=== PATIENT | female | born 1965 | race Caucasian/White ===

== ENCOUNTER 2017-05-06 16:02 | Emergency (ER) | payer OTHER, BC ==
[~2017-05-06] VITALS: Ht 162.6 cm; Wt 58.1 kg
[2017-05-06] MEDS ORDERED: GABAPENTIN100 MG PO (16:24)
[2017-05-06] MEDS ORDERED: HYDROCODON-ACE1 EA10 PO (16:24)
[2017-05-06] MEDS ORDERED: LISINOPRIL10 MG PO (16:26)
[2017-05-06] MEDS ORDERED: DIAZEPAM2 MG PO (16:26)
[2017-05-06] MEDS ORDERED: ROBAXIN500 MG PO (16:27)
[2017-05-06] MEDS ORDERED: CYCLOBENZAPRINE5 MG PO (16:27)
== END 2017-05-06 18:34 | disposition home or self-care (01) ==
LOC: ED 16:02
DX: M54.5 Low back pain (principal); I10 Essential (primary) hypertension; F17.200 Nicotine dependence, unspecified, uncomplicated; Z79.899 Other long term (current) drug therapy
CPT/HCPCS: 72100; 96372; 99283; J1885

== ENCOUNTER 2021-01-09 11:29 | Emergency (ER) | payer OTHER ==
[~2021-01-09] VITALS: Ht 162.6 cm; Wt 68.0 kg
[~2021-01-09 11:29] MED LIST: CYCLOBENZAPRINE5 MG PO; DIAZEPAM2 MG PO; GABAPENTIN100 MG PO; HYDROCODON-ACE1 EA10 PO; LISINOPRIL10 MG PO; ROBAXIN500 MG PO
[2021-01-09] MEDS ORDERED: ZOFRAN4 MG PO (13:03)
[2021-01-09] MEDS ORDERED: HYDROCODON-ACE1 EA10 PO (13:03)
[2021-01-09] MEDS ORDERED: FLOMAX0.4 MG PO (13:03)
== END 2021-01-09 13:23 | disposition home or self-care (01) ==
LOC: ED 11:29
DX: N13.2 Hydronephrosis with renal and ureteral calculous obstruction (principal); I10 Essential (primary) hypertension; F17.200 Nicotine dependence, unspecified, uncomplicated; Z79.899 Other long term (current) drug therapy
CPT/HCPCS: 74176; 80053; 81001; 85025; 96374; 96375; 99284-25; J1170; J1885; J2405; J7030